=== PATIENT | female | born 1995 | race Two or more races ===

== ENCOUNTER 2017-08-16 19:17 | Emergency (ER) | payer MEDICAID ==
[~2017-08-16] VITALS: Ht 154.9 cm; Wt 54.4 kg
[~2017-08-16 19:17] MED LIST: PREN-96 PO
[2017-08-16 19:45] VITALS: BP 126/59
[2017-08-16 20:34] LABS: Basophils # (auto) 0 uL; Basophils % (auto) 0.6 % (0.0-2.0); Eosinophils # (auto) 0.2 uL; Eosinophils % (auto) 3.1 % (0.0-7.0); Hematocrit 41.2 % (36.0-46.0); Hemoglobin 13.9 g/dL (12.2-16.2); Lymphocytes # (auto) 1.1 uL; Mean Corpuscular Hemoglobin 27.6 pg (28.0-32.0); Mean Corpuscular Hgb Conc. 33.7 g/dL (32.0-36.0); Mean Corpuscular Volume 81.9 fL (80.0-100.0); Mean Platelet Volume 7.5 fL (6.9-10.8); Monocytes # (auto) 0.5 uL; Monocytes % (auto) 6.2 % (0.0-12.0); Neutrophils # (auto) 5.5 uL; Neutrophils % (auto) 75.1 % (37.0-80.0); Platelet Count (auto) 310 10^3/uL (140-450); Red Cell Distribution Width 14.4 % (11.8-14.3); White Blood Cell 7.3 10^3/uL (4.4-10.8)
[2017-08-16 20:43] LABS: Albumin 3.9 g/dL (3.4-5.0); Calcium 8.9 mg/dL (8.5-10.1); Potassium 3.6 mmol/L (3.5-5.1)
[2017-08-16 20:46] LABS: Bilirubin, Total 0.3 mg/dL (0.2-1.0); Total Protein 8.1 g/dL (6.4-8.2)
== END 2017-08-17 01:37 | disposition left against medical advice (07) ==
LOC: ER 19:28
DX: R10.9 Unspecified abdominal pain (principal); Z53.21 Procedure and treatment not carried out due to patient leaving prior to being seen by health care provider
CPT/HCPCS: 36415; 74176; 80053; 84702; 85025

== ENCOUNTER 2018-11-01 16:46 | Emergency (ER) | payer MEDICAID ==
[~2018-11-01] VITALS: Ht 154.9 cm; Wt 56.2 kg
[2018-11-01 16:58] VITALS: BP 116/62
[2018-11-01 20:56] LABS: Urine Bacteria FEW /hpf (None Seen); Urine Blood Negative /uL (Negative); Urine Mucus FEW (None Seen); Urine Specific Gravity 1.029 (1.001-1.035); Urine WBC 4 /hpf (0 - 5)
== END 2018-11-01 22:25 | disposition home or self-care (01) ==
LOC: ER 16:51
DX: O23.42 Unspecified infection of urinary tract in pregnancy, second trimester (principal); Z3A.19 19 weeks gestation of pregnancy
CPT/HCPCS: 76805; 81001

== ENCOUNTER 2018-11-16 13:30 | Observation (INO) | payer MEDICAID | END 2018-11-16 13:45 | disposition home or self-care (01) | DRG 566 | LOC: LDRP 13:30 | PROVIDERS: ADMIT Obstetrics & Gynecology; ATTEND Obstetrics & Gynecology | DX: O46.92 Antepartum hemorrhage, unspecified, second trimester (principal); O26.892 Other specified pregnancy related conditions, second trimester; M54.9 Dorsalgia, unspecified; R10.30 Lower abdominal pain, unspecified; Z3A.20 20 weeks gestation of pregnancy | CPT/HCPCS: 59025; 76805; 81002; G0378 ==

== ENCOUNTER 2018-12-17 12:15 | Observation (INO) | payer MEDICAID | END 2018-12-17 13:25 | disposition home or self-care (01) | DRG 566 | LOC: LDRP 12:15 | PROVIDERS: ADMIT Obstetrics & Gynecology; ATTEND Obstetrics & Gynecology | DX: O46.92 Antepartum hemorrhage, unspecified, second trimester (principal); Z3A.24 24 weeks gestation of pregnancy | CPT/HCPCS: 59025; 76815; 81002; G0378 ==

== ENCOUNTER 2018-12-21 12:20 | Observation (INO) | payer MEDICAID | END 2018-12-21 13:01 | disposition home or self-care (01) | DRG 566 | LOC: LDRP 12:20 | PROVIDERS: ADMIT Obstetrics & Gynecology; ATTEND Obstetrics & Gynecology | DX: O23.42 Unspecified infection of urinary tract in pregnancy, second trimester (principal); O26.892 Other specified pregnancy related conditions, second trimester; O46.92 Antepartum hemorrhage, unspecified, second trimester; R31.9 Hematuria, unspecified; R10.30 Lower abdominal pain, unspecified; Z3A.25 25 weeks gestation of pregnancy | CPT/HCPCS: 59025; 81002; G0378 ==

== ENCOUNTER 2019-02-21 15:00 | Observation (INO) | payer MEDICAID | END 2019-02-21 15:45 | disposition home or self-care (01) | DRG 563 | LOC: LDRP 15:00 | PROVIDERS: ADMIT Specialist; ATTEND Specialist | DX: O60.03 Preterm labor without delivery, third trimester (principal); Z3A.34 34 weeks gestation of pregnancy | CPT/HCPCS: 59025; 81002; G0378 ==

== ENCOUNTER 2019-02-24 15:57 | Observation (INO) | payer MEDICAID | END 2019-02-24 16:55 | disposition home or self-care (01) | DRG 563 | LOC: LDRP 15:57 | PROVIDERS: ADMIT Obstetrics & Gynecology; ATTEND Obstetrics & Gynecology | DX: O60.03 Preterm labor without delivery, third trimester (principal); N13.30 Unspecified hydronephrosis; O99.89 Other specified diseases and conditions complicating pregnancy, childbirth and the puerperium; Z3A.34 34 weeks gestation of pregnancy | CPT/HCPCS: 59025; 76818; 81002; G0378 ==

== ENCOUNTER 2019-03-03 16:48 | Observation (INO) | payer MEDICAID ==
[~2019-03-03] VITALS: Ht 154.9 cm; Wt 67.6 kg
== END 2019-03-03 20:20 | disposition home or self-care (01) | DRG 566 ==
LOC: LDRP 19:00
PROVIDERS: ADMIT Obstetrics & Gynecology; ATTEND Obstetrics & Gynecology
DX: O99.89 Other specified diseases and conditions complicating pregnancy, childbirth and the puerperium (principal); N13.30 Unspecified hydronephrosis; O62.9 Abnormality of forces of labor, unspecified; Z3A.35 35 weeks gestation of pregnancy
CPT/HCPCS: 76818; G0378; 59025; 81002

== ENCOUNTER 2019-03-06 20:07 | Observation (INO) | payer MEDICAID ==
[~2019-03-06] VITALS: Ht 152.4 cm; Wt 68.0 kg
== END 2019-03-06 22:00 | disposition home or self-care (01) | DRG 566 ==
LOC: LDRP 20:07
PROVIDERS: ADMIT Specialist; ATTEND Specialist
DX: O00.01 Abdominal pregnancy with intrauterine pregnancy (principal); O26.893 Other specified pregnancy related conditions, third trimester; N89.8 Other specified noninflammatory disorders of vagina; O62.9 Abnormality of forces of labor, unspecified; Z3A.35 35 weeks gestation of pregnancy
CPT/HCPCS: 59025; 81002; G0378

== ENCOUNTER 2019-03-10 19:19 | Observation (INO) | payer MEDICAID ==
[~2019-03-10] VITALS: Ht 154.9 cm; Wt 68.0 kg
== END 2019-03-10 20:15 | disposition home or self-care (01) | DRG 563 ==
LOC: LDRP 19:19
PROVIDERS: ADMIT Specialist; ATTEND Specialist
DX: O60.03 Preterm labor without delivery, third trimester (principal); N13.30 Unspecified hydronephrosis; O26.893 Other specified pregnancy related conditions, third trimester; N89.8 Other specified noninflammatory disorders of vagina; O99.89 Other specified diseases and conditions complicating pregnancy, childbirth and the puerperium; Z3A.36 36 weeks gestation of pregnancy
CPT/HCPCS: 59025; 76818; 81002; G0378

== ENCOUNTER 2019-03-21 08:00 | Inpatient (IN) | payer MEDICAID | END 2019-03-22 19:12 | disposition home or self-care (01) | LOC: LDRP 08:00 | PROC: 10E0XZZ Delivery of Products of Conception, External Approach (ICD-10-PCS; principal; ~2019-03-21) | DX: O42.12 Full-term premature rupture of membranes, onset of labor more than 24 hours following rupture (principal); Z37.0 Single live birth; Z3A.38 38 weeks gestation of pregnancy ==

== ENCOUNTER 2024-07-17 09:41 | Observation (INO) | payer MEDICAID ==
[2024-07-17] MEDS ORDERED: NITR-87 PO (12:25)
== END 2024-07-17 12:40 | disposition home or self-care (01) ==
LOC: LDRP 09:41
PROVIDERS: ADMIT Obstetrics & Gynecology; ATTEND Obstetrics & Gynecology
DX: O60.03 Preterm labor without delivery, third trimester (principal); O62.9 Abnormality of forces of labor, unspecified; Z3A.28 28 weeks gestation of pregnancy
CPT/HCPCS: 59025; 76775; 81002; G0378

== ENCOUNTER 2024-07-20 11:00 | Observation (INO) | payer MEDICAID ==
[~2024-07-20 11:00] MED LIST changes: +NITR-87 PO
[2024-07-20 11:28] LABS: Urine Bacteria None Seen /hpf (None Seen)
[2024-07-20 11:38] LABS: Urine Blood Negative /uL (Negative); Urine Clarity Turbid (Clear); Urine Color Light-Yellow (Yellow); Urine Protein, UAD TRACE (Negative); Urine Specific Gravity 1.016 (1.001-1.035); Urine Urobilinogen Normal (Negative); Urine WBC 28 /hpf (0 - 5); Urine pH 6.5 (5.0-9.0)
[2024-07-20] MEDS ORDERED: CEPH250C PO (11:52)
== END 2024-07-20 12:03 | disposition home or self-care (01) ==
LOC: UNDOADMOB 11:00 → LDRP 11:00
PROVIDERS: ADMIT Obstetrics & Gynecology; ATTEND Obstetrics & Gynecology
DX: O99.891 Other specified diseases and conditions complicating pregnancy (principal); N13.30 Unspecified hydronephrosis; N20.0 Calculus of kidney; Z3A.28 28 weeks gestation of pregnancy
CPT/HCPCS: 81001; G0378; 59025; 81002; 94760

== ENCOUNTER → 2024-09-04 | Outpatient (CLI) | payer MEDICAID ==
[~2024-09-04] MED LIST changes: +CEPH250C PO; -NITR-87 PO
[2024-09-04 09:20] LABS: Basophils # (auto) 0 10 ^3/uL (0-0.2); Basophils % (auto) 0.2 % (0.0-2.0); Eosinophils # (auto) 0.1 10 ^3/uL (0-0.8); Eosinophils % (auto) 1.5 % (0.0-7.0); Hematocrit 34.7 % (36.0-46.0); Hemoglobin 11.5 g/dL (12.2-16.2); Lymphocytes # (auto) 1.6 10 ^3/uL (0.4-5.4); Lymphocytes % (auto) 18.8 % (10.0-50.0); Mean Corpuscular Hemoglobin 24.6 pg (28.0-32.0); Mean Corpuscular Hgb Conc. 33.2 g/dL (32.0-36.0); Mean Corpuscular Volume 74.2 fL (80.0-100.0); Monocytes # (auto) 0.6 10 ^3/uL (0-1.3); Neutrophils # (auto) 6.1 10 ^3/uL (1.6-8.6); Neutrophils % (auto) 72.5 % (37.0-80.0); Nucleated Red Blood Cells % 0.1 %; Platelet Count (auto) 348 10^3/uL (140-450); Red Blood Cells 4.68 10^6/uL (4.0-5.20); Red Cell Distribution Width 15.9 % (11.8-14.3); White Blood Cell 8.5 10^3/uL (4.4-10.8)
[2024-09-05 07:06] LABS: RPR Non Reactive (Non Reactive)
[2024-09-06 04:06] LABS: Chlamydia Trachomatis, NAA Negative (Negative); Neisseria gonorrhoeae, NAA Negative (Negative)
== END | disposition home or self-care (01) ==
LOC: LAB 08:59
PROVIDERS: ATTEND Obstetrics & Gynecology
DX: Z34.80 Encounter for supervision of other normal pregnancy, unspecified trimester (principal); Z72.51 High risk heterosexual behavior
CPT/HCPCS: 36415; 85025; 86592

== ENCOUNTER 2024-09-23 12:52 | Observation (INO) | payer MEDICAID | END 2024-09-23 13:53 | disposition home or self-care (01) | LOC: LDRP 12:52 | PROVIDERS: ADMIT Obstetrics & Gynecology; ATTEND Obstetrics & Gynecology | DX: O62.9 Abnormality of forces of labor, unspecified (principal); O99.891 Other specified diseases and conditions complicating pregnancy; M54.50 Low back pain, unspecified; Z3A.37 37 weeks gestation of pregnancy | CPT/HCPCS: 59025; 81002; 94760; G0378 ==

== ENCOUNTER 2024-09-29 05:17 | Inpatient (IN) | payer MEDICAID ==
[~2024-09-29] VITALS: Ht 152.4 cm; Wt 78.9 kg
[2024-09-29 06:38] LABS: Fern Testing Positive
[2024-09-29] MEDS ORDERED: LIDOCAINE 2%HCL (LOCAL ANESTH.) INJ 20ML MDV IJ PRN (06:45)
[2024-09-29] MEDS ORDERED: NALBUPHINE HCL 10 MG/1ml INJECTION IV PRN (06:45)
[2024-09-29] MEDS ORDERED: NALOXONE HCL 0.4 MG/ML VIAL IV ONE (07:00)
[2024-09-29] MEDS ORDERED: ePHEDrine SULFATE 50 MG/ML AMP IV ONE (07:00)
--- NOTE | 2024-09-29 07:31 | DVHHP2 ---
OB CC & HPI Date Date of Admission: Sep 29, 2024 Patient Identification: : 4 Para: 2 EGA: 38w Chief Complaints: Reason for admission: rupture of membranes Admission Nurse Assessment Rev: Yes History of Present Complaints armando Low with EDC of 10/09/[address] with report of contractions that started at 3:30am spontaneous rupture of membranes at 3:50AM. movement as normal, no VB, no GUNTER, epigastric pain or vision changes. Past Medical History Cardiac: No pertinent Hx Pulmonary: No pertinent Hx Central Nervous System: No pertinent Hx GI: No pertinent Hx Hemotology/Oncology: No pertinent Hx Hepatobiliary: No pertinent Hx Psychiatric: No pertinent Hx Musculoskeletal: No pertinent Hx Rheumotologic: No pertinent Hx Infectious Disease: No peritnent Hx ENT: No pertinent Hx Renal/: No pertinent Hx Endocrine: No pertinent Hx Dermatology: No pertinent Hx Past Surgical History: No pertinent Hx OB History OB History Care: Good Care Ultrasounds: Normal mid trimester US Obstetrical Complications: None Allergies: Coded Allergies: NO KNOWN ALLERGIES (Unverified , 07/24/10) Home Meds Reported Medications Cephalexin (KEFLEX CAPSULE) 250 Mg Cp, 500 MG PO QID for 7 Days, #28 07/20/24 Vit W/ Ferrous Fumara ( One Daily) Daily Tab, 1 TAB PO DAILY, #90 TAB 3 Refills 07/10/16 Family & Social History Family/Social History Past Family/Social History: Patient's mother has breast cancer; in remission Blood Type: O+ Rubella: immune RPR/VDRL: Negative GBS Status: Negative HBsAG: Negative Review of Systems Constitutional: No symptom reported Ears, Nose, & Throat: No symptom reported Eyes: No symptom reported Pulmonary/Respiratory: No symptom reported Cardiovascular: No symptom reported Gastrointestinal: No symptom reported Genitourinary: No symptom reported Musculoskeletal: No symptom reported Skin: No symptom reported Psychiatric: No symptom reported Endocrine: No symptom reported Hemotologic/Lymphatic: No symptom reported OB Admission Exam Physical Exam HEENT: Nasal Mucosa Normal, Eyes non-injected, Oropharynx Normal, Moist Membranes Heart: Rhythm Normal Lungs: Clear Abdomen: Gravid (non-tender) Extremities: Normal Reflexes: Normal Cervical Dilatation: 2cm Effacement: 50% Station: -2 Membranes: Ruptured Amniotic Fluid: Clear Heart Rate: 130's Accelerations: Accelerations Present 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: Average (6-25) Contractions on Admission: < 5 Minutes Apart Date/Time Contractions Began: 09/29/24 @ 03:30 Frequency of Contractions: five minutes Duration: 60secs Intensity: Moderate OB Plan Plan Admitting Diagnosis: IUPat 38w 4d SROM Early Labor Plan: Expectant Management Other Plan: Plan of care discussed with Patient and partner & partner Process, Risks, benefits, of available management options discussed, including starting with expectant management, augmentation if indicated, Internal monitor ing of UCs & FHT, AROM, amnioinfusion etc only when indicated Patient agrees to starting with expectant management at this time; other interventions as indicated Informed Consent obtained Admit to Place for Labor Routine L&D Admission orders EFM per policy Intrauterine resuscitation PRN Encourage ambulation / frequent position change to facilitate labor & descent Labor analgesia /anesthesia PRN Supportive care Anticipate JERI ROSARIO CNM Sep 29, 2024 07:31
--- NOTE | 2024-09-29 07:34 | DVHPN2 ---
Chief Complaints Patient reports: No new complaints Nursing reports: No new complaints Objective Medications Current Medications Medications (Trade) Dose Ordered Sig/Nahomy Route PRN Reason Start Time Stop Time Status Last Admin Benzocaine (Dermoplast) 1 applic PRN PRN TOP PERINEAL AREA DISCOMFORT 09/29/24 06:45 Lactated Ringer's 1,000 ml @ 125 mls/hr Q8H IV 09/29/24 06:45 Lidocaine HCl (Xylocaine) 20 ml ONCE PRN IJ PERINEAL AREA DISCOMFORT 09/29/24 06:45 Nalbuphine HCl (Nubain) 10 mg Q4HP PRN IV MODERATE PAIN (4-6 PAIN SCALE) 09/29/24 06:45 Sodium Lauryl Sulfate (Phisoderm) 240 ml PRN PRN TOP PERINEAL AREA DISCOMFORT 09/29/24 06:45 Witch Staci (Tucks) 1 pad PRN PRN TOP PERINEAL AREA DISCOMFORT 09/29/24 06:45 General: Normal Lungs: Normal Cardiovascular: Normal Abdominal: Soft Musculoskeletal: Normal Extremities: Normal Others VE-2CM/60/-2 Ass/Plan Assessment LABOR Plan SUPPORTIVE CARE BRIGITTESARAH ELLISGLADYS BANUELOS Sep 29, 2024 07:34
[2024-09-29 07:36] LABS: Urine Bacteria None Seen /hpf (None Seen)
[2024-09-29 07:48] LABS: Basophils # (auto) 0.1 10 ^3/uL (0-0.2); Basophils % (auto) 0.6 % (0.0-2.0); Eosinophils # (auto) 0.2 10 ^3/uL (0-0.8); Eosinophils % (auto) 2.5 % (0.0-7.0); Hemoglobin 11.1 g/dL (12.2-16.2); Lymphocytes # (auto) 1.5 10 ^3/uL (0.4-5.4); Monocytes # (auto) 0.6 10 ^3/uL (0-1.3); Platelet Count (auto) 335 10^3/uL (140-450); Red Cell Distribution Width 16.3 % (11.8-14.3)
[2024-09-29 07:49] LABS: Lymphocytes % (auto) 16.6 % (10.0-50.0); Mean Corpuscular Hemoglobin 23.4 pg (28.0-32.0); Mean Corpuscular Hgb Conc. 31.7 g/dL (32.0-36.0); Mean Corpuscular Volume 73.8 fL (80.0-100.0); Neutrophils # (auto) 6.5 10 ^3/uL (1.6-8.6); Neutrophils % (auto) 73.3 % (37.0-80.0); Nucleated Red Blood Cells % 0.1 %; Red Blood Cells 4.74 10^6/uL (4.0-5.20); White Blood Cell 8.9 10^3/uL (4.4-10.8)
[2024-09-29] MEDS: LACTATED RINGER'S 1,000 ML IV ONE (07:56)
[2024-09-29] MEDS: LACTATED RINGER'S 1,000 ML IV SCH (07:56)
[2024-09-29 08:08] LABS: Amphetamine Screen, Urine Neg (NEGATIVE); Barbiturate Scree,Urine Neg (NEGATIVE); Benzodiazephine Screen, Urine Neg (NEGATIVE); Cocaine Screen, Urine Neg (NEGATIVE); Opiate Scree,Urine Neg (NEGATIVE); Phencyclidine Screen, Urine Neg (NEGATIVE); Urine Blood 3+ /uL (Negative); Urine Clarity Turbid (Clear); Urine Color Colorless (Yellow); Urine Protein, UAD Negative (Negative); Urine Specific Gravity 1.009 (1.001-1.035); Urine Urobilinogen Normal (Negative); Urine WBC 8 /hpf (0 - 5)
[2024-09-29 08:10] LABS: Cannabinoid Screen, Urine Neg (NEGATIVE)
[2024-09-29] MEDS: PHISODERM TOP SOLN 240ML BTL TOP PRN (08:10)
[2024-09-29] MEDS: WITCH HAZEL-GLYCERIN PAD TOP PRN (08:10)
[2024-09-29] MEDS: DERMOPLAST 60ML BOTTLE TOP PRN (08:10)
[2024-09-29 08:12] LABS: Albumin 3.9 g/dL (3.2-4.8); Alkaline Phosphatase 197 U/L (46-116); Anion Gap 8 (5-15); Aspartate Aminotransferase 11 U/L (13-40); BUN/Creatinine Ratio 10.9 (10.0-20.0); Bilirubin, Total 0.4 mg/dL (0.2-1.0); Blood Urea Nitrogen 5 mg/dL (9-23); Calcium 9.3 mg/dL (8.7-10.4); Carbon Dioxide 21 mmol/L (20-31); Chloride 107 mmol/L (98-107); Glucose 78 mg/dL (74-106); Potassium 3.9 mmol/L (3.5-5.1); Sodium 136 mmol/L (136-145)
[2024-09-29 08:24] LABS: Alanine Aminotransferase < 9 U/L (7-40)
[2024-09-29] MEDS: ROPIVACAINE HCL 200 ML ONE (08:38)
[2024-09-29 08:51] LABS: INR 0.97 (0.9-1.15); Partial Thromboplastin Time 25.8 SEC (24.5-34.5); Prothrombin Time 10.3 sec (9.3-11.8)
[2024-09-29] MEDS: LACT. RINGERS/OXYTOCIN 20UNITS 1,000 ML IV SCH (09:30)
--- NOTE | 2024-09-29 10:38 | DVHPN2 ---
Chief Complaints Patient reports: No new complaints Nursing reports: No new complaints Objective Medications Current Medications Medications (Trade) Dose Ordered Sig/Nahomy Route PRN Reason Start Time Stop Time Status Last Admin Benzocaine (Dermoplast) 1 applic PRN PRN TOP PERINEAL AREA DISCOMFORT 09/29/24 06:45 09/29/24 08:10 Lactated Ringer's 1,000 ml @ 125 mls/hr Q8H IV 09/29/24 06:45 09/29/24 07:56 Lidocaine HCl (Xylocaine) 20 ml ONCE PRN IJ PERINEAL AREA DISCOMFORT 09/29/24 06:45 Nalbuphine HCl (Nubain) 10 mg Q4HP PRN IV MODERATE PAIN (4-6 PAIN SCALE) 09/29/24 06:45 Oxytocin 1,000 ml @ 6 ml/hr Q24H IV 09/29/24 09:00 09/29/24 09:30 Sodium Lauryl Sulfate (Phisoderm) 240 ml PRN PRN TOP PERINEAL AREA DISCOMFORT 09/29/24 06:45 09/29/24 08:10 Witemily Staci (Tucks) 1 pad PRN PRN TOP PERINEAL AREA DISCOMFORT 09/29/24 06:45 09/29/24 08:10 General: Normal Lungs: Normal Cardiovascular: Normal Abdominal: Soft Musculoskeletal: Normal Extremities: Normal Others ve-9.5cm/90/0 Studies Laboratory Tests 09/29/24 07:24 Test 09/29/24 07:24 Range/Units Serum Glucose 78 74-106 mg/dL Ass/Plan Assessment active labor Plan expectant vag RON Barillas DO Sep 29, 2024 10:38
--- NOTE | 2024-09-29 11:24 | LDN2 ---
Labor and Delivery Note Date 09/29/24 Age 29 4 Para 3 AB 1 EDC 11-20 EGA 38WKS Diagnosis SROM,38WKS Vaginal Delivery: VTX Vacuum Assisted: Yes Placenta: Spontaneous Sex: Female Apgars 8-9 Nuchal Cord Transected: No Amniotic Fluid: Clear Anesthesia SPINAL Episiotomy: No Extension: No EBL 300 Labs Blood Bank 09/29/24 07:24: Blood Type O POSITIVE Complications NONE Conditions STABLE Comments/Significant Med Hal SPEC EXAM NO CXAL LAC VACCUM APPLIED ONCE DUE TO POOR PUSHING EFFORT AND DECL. ONE PULL WITH VACCUM AND BABY DELIVERED RON LOMAS Sep 29, 2024 11:24
[2024-09-29] MEDS: LACT. RINGERS/OXYTOCIN 20UNITS 500 ML IV ONE ×2 (11:28→11:54)
[2024-09-29 15:00] VITALS: BP 111/59; PULSE 80; RESP 19; TEMP 98.2; O2SAT 96
[2024-09-29] MEDS: IBUPROFEN 600 MG TAB PO PRN (15:14)
[2024-09-29 18:30] VITALS: BP 119/57; PULSE 69; RESP 16; TEMP 99; O2SAT 97
[2024-09-29] MEDS: ACETAMINOPHEN 325 MG TAB PO PRN (20:33)
[2024-09-29 23:17] VITALS: BP 114/58; PULSE 86; RESP 16; TEMP 98.4; O2SAT 97
--- NOTE | 2024-09-30 01:27 | DVHPN2 ---
Progress Note Date Seen: Sep 30, 2024 Subjective S: Lochia minimal. Regular diet well tolerated. Ambulating and voiding well w/o feeling dizzy or lightheaded. Perineal pain relieved with topical analgesics and cramps with oral analgesics. Passing flatus but no BM yet. w/o problem Desires and Requests to be discharged today vital signs Vital Sign Date Time Temp Pulse Resp B/P (MAP) Pulse Ox O2 Delivery O2 Flow Rate FiO2 09/29/24 23:17 98.4 86 16 114/58 (76) 97 98.4 09/29/24 18:30 Room Air 09/29/24 16:31 0.0 Total Intake and Output 09/29/24 09/29/24 09/30/24 15:00 23:00 07:00 Output Total 1650 ml Balance -1650 ml medications Current Medications Medications Dose Ordered Sig/Nahomy Route Start Time Stop Time Status Last Admin Dose Admin Lactated Ringer's 1,000 ml @ 125 mls/hr Q8H IV 09/29/24 06:45 09/29/24 07:56 125 MLS/HR Nalbuphine HCl 10 mg Q4HP PRN IV 09/29/24 06:45 Witch Staci 1 pad PRN PRN TOP 09/29/24 06:45 09/29/24 08:10 1 PAD Sodium Lauryl Sulfate 240 ml PRN PRN TOP 09/29/24 06:45 09/29/24 08:10 240 ML Benzocaine 1 applic PRN PRN TOP 09/29/24 06:45 09/29/24 08:10 1 APPLIC Lidocaine HCl 20 ml ONCE PRN IJ 09/29/24 06:45 Oxytocin 1,000 ml @ 6 ml/hr Q24H IV 09/29/24 09:00 09/29/24 09:30 6 ML/HR Ibuprofen 600 mg Q6HP PRN PO 09/29/24 14:45 09/29/24 15:14 600 MG Acetaminophen 650 mg Q4HP PRN PO 09/29/24 14:45 09/29/24 20:33 650 MG laboratory and microbiology Laboratory Tests 09/29/24 07:24 Test 09/29/24 07:24 Range/Units Serum Glucose 78 74-106 mg/dL Objective O: A&O x3 NAD. Afebrile, VSS Chest: heart and lung sounds normal. Breasts: Nipples intact w/o cracks or soreness Abdomen: normal BS, soft, non-tender, no rebound or guarding, fundus firm @ U- 1, Perineum:- Intact, no edema, or erythema Extremities: no edema or tenderness Lochia - minimal Assessment/Plan 29yo now ppd#1_ s/p VAVD doing well. Blood Type: O Rh: Positive Breast feeding and Formula feeding Rubella: Immune Pain control with oral medications PP BCM Plan: Oral Contraceptive pills Bowel regimen: Increase fluid intake and fiber in diet, Laxative PRN Discharge plan: May discharge home later today if condition remains stable Plan discussed with: Patient, Spouse JERI ROSARIO CNM Sep 30, 2024 01:27
--- NOTE | 2024-09-30 01:32 | DVHDS2 ---
Obstetrics Discharge Summary Obstetrics Discharge Summary Date of Admission: Sep 29, 2024 Date of Discharge: Sep 30, 2024 Reason For Admission: Onset of Labor Procedures: None Intrapartum Procedures: Vacuum Extraction Procedures: None, Hct/date: (35% on 09/29/24), Hgb/date: (11.1g/dL on 09/29/24) Operative Complicat: None Discharge Diagnosis: Term -Delivered Discharge Information: Activity (Unrestricted. Advance as tolerated. No heavy lifting, pushing or straining. Pelvic rest x 6weeks), Diet (Routine regular diet rich in fiber, protein, iron and vitamin C with adequate fluid intake.), Medications (Ibuprofen 600mg every 6 hours as needed for pain. Continue Vitamin and iron), Instructions ( self care instructions given. emergency signs and symptoms including pre-eclampsia precautions and signs of PPD reviewed with patient. Follow up with OB Provider in 1 week), Discharge to (Home) JERI ROSARIO CNM Sep 30, 2024 01:32
[2024-09-30 02:55] VITALS: BP 115/58; PULSE 76; RESP 16; TEMP 99; O2SAT 97
[2024-09-30 07:00] VITALS: BP 110/57; PULSE 71; RESP 16; TEMP 99.3; O2SAT 98
[2024-09-30 11:00] VITALS: BP 117/71; PULSE 67; RESP 20; TEMP 97.8; O2SAT 96
[2024-10-01 07:06] LABS: RPR Non Reactive (Non Reactive)
== END 2024-09-30 13:07 | disposition home or self-care (01) | DRG 560 ==
LOC: UNDOADMOB 05:17 → LDRP 05:17 → OBSVTOIN 06:27 → LDRP 06:27 → INTOOBSV 06:27 → LDRP 07:55
PROVIDERS: ADMIT Obstetrics & Gynecology; ATTEND Obstetrics & Gynecology
PROC: 10D07Z6 Extraction of Products of Conception, Vacuum, Via Natural or Artificial Opening (ICD-10-PCS; principal; 2024-09-29)
DX: O80 Encounter for full-term uncomplicated delivery (principal); Z37.0 Single live birth; Z3A.38 38 weeks gestation of pregnancy
CPT/HCPCS: 36415; 59025; 59409; 62282; 80053; 80307; 81001; 81002; 82948; 82962; 84112; 85025; 85610; 85730; 86592; 86780; 86803; 86850; 86900; 86901; 94760; 96360; 96361; 96365; 96366; G0378; J2590